=== PATIENT | female | born 1970 | race Caucasian/White ===

== ENCOUNTER 2022-01-31 08:14 | Inpatient (IN) | payer OTHER ==
[2022-01-25 13:44] LABS: BASOPHILS # (AUTO) 0.1 X10'3 (0-0.2); BASOPHILS % (AUTO) 0.9 % (0-1); EOSINOPHILS # (AUTO) 0.2 X10'3 (0-0.9); EOSINOPHILS % (AUTO) 1.9 % (0-6); LYMPHOCYTES # (AUTO) 2.6 X10'3 (1.1-4.8); MEAN CORPUSCULAR HEMOGLOBIN 31.9 PG (27.0-31.0); MEAN CORPUSCULAR HGB CONC 33.6 g/dL (33.0-36.5); MEAN CORPUSCULAR VOLUME 94.9 FL (78-98); MEAN PLATELET VOLUME 7.5 FL (7.4-10.4); MONOCYTES # (AUTO) 0.7 X10'3 (0-0.9); MONOCYTES % (AUTO) 8.5 % (2-12); NEUTROPHILS # (AUTO) 5.1 X10'3 (1.8-7.7); NEUTROPHILS % (AUTO) 58.7 % (42-75); PRE OP HEMATOCRIT 42.3 % (35.0-45.0); PRE OP HEMOGLOBIN 14.2 g/dL (12.0-16.0); PRE OP PLATELET COUNT 292 X10'3 (140-440); RED BLOOD COUNT 4.46 X10'6 (4.20-5.60); RED CELL DISTRIBUTION WIDTH 13.1 % (11.5-14.5)
[2022-01-25 14:07] LABS: ALBUMIN 3.4 G/DL (3.4-5.0); ALKALINE PHOSPHATASE 104 IU/L (46-116); BLOOD UREA NITROGEN 16 MG/DL (7-18); BUN/CREATININE RATIO 19.5 (6.6-38.0); CALCIUM 8.7 MG/DL (8.5-10.1); CHLORIDE 103 MMOL/L (99-107); CREATININE 0.82 MG/DL (0.40-0.90); PRE OP ALT 36 U/L (30-65); PRE OP ANION GAP 6 (8-16); PRE OP AST 14 U/L (10-37); PRE OP BILIRUB, TOTAL 0.7 MG/DL (0.0-1.0); PRE OP GLUCOSE 97 MG/DL (70-104); PRE OP POTASSIUM 3.9 MMOL/L (3.4-5.1); PRE OP SODIUM 138 MMOL/L (135-145); TOTAL CARBON DIOXIDE 28.8 MMOL/L (24-32); TOTAL PROTEIN 6.9 G/DL (6.4-8.2); eGFR 73 ML/MIN
[~2022-01-31] VITALS: Ht 162.6 cm; Wt 113.2 kg
[2022-01-31] VITALS (23 sets, daily range): BP systolic 88–143; BP diastolic 48–82
[~2022-01-31 08:14] MED LIST: ACET-1025 PO; ASCO500T28 PO; ERGO400C PO; IBUP-1985 PO; ROPIVAcaine 0.5% (5mg/ml) 30ml vial ONE; VITA-268 PO; ceFAZolin inj. 2,000 MG in dextrose 5%-water 100 ML IV ONE; famotidine 20mg tablet PO ONE; ringers solution, lacted 1,000 ML IV SCH; tranexamic acid 650mg tablet PO ONE; vancomycin 1,500 MG in NS 300ml IV soln IV ONE
--- NOTE | 2022-01-31 08:50 | NUR ---
CSM: PULSES PRESENT. MARKED PEDAL PULSES. PATIENT WATCHED THE VIDEO AND USED HER MUPIROCIN CREAM DIRECTED. EDUCATED PATIENT ON HOW TO USE THE ON Q PUMP. EDUCATED PATIENT ON THE USE OF THE INCENTIVE SPIROMETER AND ITS IMPORTANCE.
[2022-01-31] MEDS ORDERED: ketorolac trometh. 30mg/ml inj. ONE (09:29)
[2022-01-31] MEDS ORDERED: ROPIVAcaine 0.5% (5mg/ml) 30ml vial ONE (09:29)
[2022-01-31] MEDS ORDERED: LIDOcaine 1% (10mg/ml)w/preservative inj. 20ml MDV ONE (10:30)
[2022-01-31] MEDS ORDERED: acetaminophen 1000 MG/100ml vial IV ONE (10:30)
[2022-01-31] MEDS ORDERED: sevoflurane 250ml liquid IH ONE (10:30)
[2022-01-31] MEDS ORDERED: fentaNYL/PF 50MCG/1 ML 2ML syringe ONE (10:36)
[2022-01-31] MEDS ORDERED: midazolam 1 mg/ML 2ml injection ONE (10:36)
[2022-01-31] MEDS ORDERED: succinylcholine 20mg/ml inj IV ONE (10:39)
[2022-01-31] MEDS ORDERED: propofol inj 20 ML IV ONE (10:39)
[2022-01-31] MEDS ORDERED: ondansetron/PF 4mg/2ml inj ONE (10:39)
[2022-01-31] MEDS ORDERED: dexamethasone sod phosphate 4mg/ml inj. ONE (10:39)
[2022-01-31] MEDS ORDERED: morphine 4 MG/ML inj SYRINge IV PRN (11:40)
[2022-01-31] MEDS ORDERED: ringers solution, lacted 1,000 ML IV SCH (11:40)
[2022-01-31] MEDS ORDERED: morphine 2 MG/ML inj. syringe IV PRN (11:40)
[2022-01-31] MEDS ORDERED: fentaNYL/PF 50MCG/1 ML 2ML syringe IV PRN ×2 (11:40)
[2022-01-31] MEDS ORDERED: ondansetron/PF 4mg/2ml inj IV PRN ×2 (11:40→13:15)
[2022-01-31] MEDS ORDERED: labetalol 20mg/4ml (5mg/ml) syringe IV PRN (11:40)
[2022-01-31] MEDS ORDERED: ROPIVAcaine 0.2% (10 MG/5 ML) BOLUS INJECTION INTERSCALE PRN (11:40)
[2022-01-31] MEDS ORDERED: hydrALAZINE 20mg/ml inj. IV PRN (11:40)
[2022-01-31] MEDS ORDERED: ePHEDrine 50MG/ML INJ. ONE (12:21)
--- NOTE | 2022-01-31 12:52 | NUR ---
Received from OR via VIA BED IN STABLE CONDITION WITH ORAL AIRWAY IN PLACE, accompanied by Anesthesiologist and FIELD STAFF MANAGER report given by FIELD STAFF MANAGER AND Anesthesiolgist. Addendum: 01/31/22 at 1320 by Nabila Samuel RN Amended: Links added.
--- NOTE | 2022-01-31 13:13 | NUR ---
Received from OR via BED IN STABLE CONDITION WITH ORAL AIRWAY IN PLACE , accompanied by Anesthesiologist and DIAMOND CLEAVER report given by DIAMOND CLEAVER AND Anesthesiolgist.
[2022-01-31] MEDS ORDERED: magnesium hydroxide 30ml (MOM) UD suspension PO PRN (13:15)
[2022-01-31] MEDS ORDERED: bisacodyl 10mg suppository rectal RC PRN (13:15)
[2022-01-31] MEDS ORDERED: naloxone 0.4 mg/ml inj IV PRN (13:15)
[2022-01-31] MEDS ORDERED: non-formulary drug (Acetaminophen (Tylenol Extra Strength) 1 TAB) PO PRN (13:15)
[2022-01-31] MEDS ORDERED: HYDROmorphone inj. 0.5 MG/0.5 ML DISP.SYRIN IV PRN (13:15)
[2022-01-31] MEDS ORDERED: acetaminophen 325mg tablet PO PRN (13:15)
[2022-01-31] MEDS ORDERED: diphenhydrAMINE 25mg capsule PO PRN ×2 (13:15)
[2022-01-31] MEDS ORDERED: HYDROmorphone 1 mg/ml syringe IV PRN (13:15)
[2022-01-31] MEDS: acetaminophen 325mg tablet PO SCH ×2 (14:00→20:36)
[2022-01-31] MEDS: ROPIVAcaine 0.2%/PF PUMP/bolus 545 ML INTERSCALE SCH (14:05)
--- NOTE | 2022-01-31 14:52 | NUR ---
PATIENT DISCHARGED FROM PACU IN STABLE CONDITION AFTER REPORT GIVEN TO THE RN TAKING OVER PATIENTS CARE. PATIENT TRANSFERRED TO ROOM 4023B VIA BED WITH RN X2. Addendum: 01/31/22 at 1505 by Nabila Samuel RN Amended: Links added.
[2022-01-31] MEDS: ceFAZolin/D5W- 1GM premix 50 ML IV SCH (16:24)
[2022-01-31] MEDS: potassium cl 20mEq in 1/2 NS 1,000 ML IV SCH ×2 (16:24→21:15)
--- NOTE | 2022-01-31 18:17 | NUR ---
Problems reprioritized. Patient report given, questions answered & plan of care reviewed with HANY ARMIJO.
--- NOTE | 2022-01-31 18:25 | NUR ---
Patient in room [facility]TH[facility] 4023. I have received report from ZOFIA Chin and had the opportunity to ask questions and assume patient care.
[2022-01-31] MEDS ORDERED: vancomycin/NS 1 GM ADD-VANTAGE 250 ML IV SCH (20:00)
[2022-01-31] MEDS: sennosides 8.6mg tablet PO SCH (20:35)
[2022-01-31] MEDS: oxyCODONE IR 5mg (immed. release) tablet PO PRN (20:37)
[2022-02-01] MEDS: ceFAZolin/D5W- 1GM premix 50 ML IV SCH (00:13)
[2022-02-01 02:00] VITALS: BP 127/62
[2022-02-01] MEDS: acetaminophen 325mg tablet PO SCH ×4 (02:04→21:10)
[2022-02-01] MEDS: potassium cl 20mEq in 1/2 NS 1,000 ML IV SCH ×2 (02:42→21:12)
[2022-02-01 06:07] LABS: BASOPHILS # (AUTO) 0.1 X10'3 (0-0.2); BASOPHILS % (AUTO) 0.7 % (0-1); EOSINOPHILS % (AUTO) 0 % (0-6); HEMATOCRIT 37.9 % (35.0-45.0); HEMOGLOBIN 12.6 g/dl (12.0-16.0); LYMPHOCYTES # (AUTO) 1.3 X10'3 (1.1-4.8); LYMPHOCYTES % (AUTO) 8.6 % (21-51); MEAN CORPUSCULAR HEMOGLOBIN 31.6 PG (27.0-31.0); MEAN CORPUSCULAR HGB CONC 33.1 g/dL (33.0-36.5); MEAN CORPUSCULAR VOLUME 95.4 FL (78-98); MEAN PLATELET VOLUME 7.9 FL (7.4-10.4); MONOCYTES # (AUTO) 1.1 X10'3 (0-0.9); MONOCYTES % (AUTO) 7.2 % (2-12); NEUTROPHILS % (AUTO) 83.5 % (42-75); PLATELET COUNT 291 X10'3 (140-440); RED BLOOD COUNT 3.97 X10'6 (4.20-5.60); RED CELL DISTRIBUTION WIDTH 12.9 % (11.5-14.5); WHITE BLOOD COUNT 15.6 X10'3 (4.5-11.0)
[2022-02-01 06:27] LABS: ANION GAP 8 (8-16); CHLORIDE 107 MMOL/L (99-107); POTASSIUM 4.8 MMOL/L (3.5-5.1); SODIUM 140 MMOL/L (135-145); TOTAL CARBON DIOXIDE 24.8 MMOL/L (24-32)
--- NOTE | 2022-02-01 06:47 | NUR ---
Problems reprioritized. Patient report given, questions answered & plan of care reviewed with ZOFIA Cole.
[2022-02-01 07:38] VITALS: BP 96/49
[2022-02-01 10:00] VITALS: BP 122/62
[2022-02-01] MEDS: vitamin B comp w/Vit. C tab 1 TAB TABLET PO SCH (11:26)
[2022-02-01] MEDS: aspirin 325mg tablet PO SCH (11:26)
[2022-02-01] MEDS: ibuprofen 200mg tablet PO SCH (11:26)
--- NOTE | 2022-02-01 11:38 | NUR ---
Joint surgery consult: Pt s/p R shoulder surgery this admit per EMR. Pt seen by KENZIE for written/verbal high protein ed w/ RD contact information provided. KENZIE encouraged pt to contact dietitian's office if further nutrition questions/concerns. Addendum: 02/01/22 at [address] Amended: Links added.
[2022-02-01] MEDS: oxyCODONE IR 5mg (immed. release) tablet PO PRN ×2 (13:58→21:09)
[2022-02-01 18:00] VITALS: BP 115/57
[2022-02-01] MEDS: sennosides 8.6mg tablet PO SCH (21:09)
[2022-02-01] MEDS: celeCOXIB 100mg capsule PO SCH (21:10)
[2022-02-01 22:00] VITALS: BP 145/70
[2022-02-02] MEDS: potassium cl 20mEq in 1/2 NS 1,000 ML IV SCH (00:58)
[2022-02-02] MEDS: acetaminophen 325mg tablet PO SCH ×2 (02:17→09:05)
[2022-02-02] MEDS: oxyCODONE IR 5mg (immed. release) tablet PO PRN ×3 (02:18→09:57)
[2022-02-02 06:00] VITALS: BP 127/83
[2022-02-02 06:26] LABS: BASOPHILS % (AUTO) 0.4 % (0-1); EOSINOPHILS # (AUTO) 0.1 X10'3 (0-0.9); EOSINOPHILS % (AUTO) 1.4 % (0-6); HEMATOCRIT 36.6 % (35.0-45.0); HEMOGLOBIN 12.1 g/dl (12.0-16.0); LYMPHOCYTES # (AUTO) 2.9 X10'3 (1.1-4.8); LYMPHOCYTES % (AUTO) 29.2 % (21-51); MEAN CORPUSCULAR HEMOGLOBIN 31.4 PG (27.0-31.0); MEAN CORPUSCULAR HGB CONC 33.1 g/dL (33.0-36.5); MEAN CORPUSCULAR VOLUME 94.7 FL (78-98); MEAN PLATELET VOLUME 8.1 FL (7.4-10.4); MONOCYTES # (AUTO) 0.9 X10'3 (0-0.9); MONOCYTES % (AUTO) 8.8 % (2-12); NEUTROPHILS # (AUTO) 5.9 X10'3 (1.8-7.7); NEUTROPHILS % (AUTO) 60.2 % (42-75); PLATELET COUNT 255 X10'3 (140-440); RED BLOOD COUNT 3.86 X10'6 (4.20-5.60); WHITE BLOOD COUNT 9.8 X10'3 (4.5-11.0)
--- NOTE | 2022-02-02 06:35 | NUR ---
Problems reprioritized. Patient report given, questions answered & plan of care reviewed with dylan Mcgowan.
[2022-02-02] MEDS: ibuprofen 200mg tablet PO SCH (09:06)
[2022-02-02] MEDS: vitamin B comp w/Vit. C tab 1 TAB TABLET PO SCH (09:06)
[2022-02-02] MEDS: aspirin 325mg tablet PO SCH (09:06)
[2022-02-02] MEDS: celeCOXIB 100mg capsule PO SCH (09:06)
[2022-02-02] MEDS: ROPIVAcaine 0.2%/PF PUMP/bolus 545 ML INTERSCALE SCH (09:07)
[2022-02-02 10:00] VITALS: BP 121/67
[2022-02-02] MEDS ORDERED: acetaminophen 325mg tablet PO PRN (13:15)
== END 2022-02-02 14:05 | disposition home or self-care (01) | DRG 483 ==
LOC: PAS IN 08:14 → ORTHO 4S 14:53
PROVIDERS: ADMIT Orthopaedic Surgery; ATTEND Orthopaedic Surgery
PROC: 0LS30ZZ Reposition Right Upper Arm Tendon, Open Approach (ICD-10-PCS; 2022-01-31)
PROC: 3E0T3BZ Introduction of Anesthetic Agent into Peripheral Nerves and Plexi, Percutaneous Approach (ICD-10-PCS; 2022-01-31)
PROC: 3E0T33Z Introduction of Anti-inflammatory into Peripheral Nerves and Plexi, Percutaneous Approach (ICD-10-PCS; 2022-01-31)
PROC: 5A09357 Assistance with Respiratory Ventilation, Less than 24 Consecutive Hours, Continuous Positive Airway Pressure (ICD-10-PCS; 2022-01-31)
PROC: 5A09357 Assistance with Respiratory Ventilation, Less than 24 Consecutive Hours, Continuous Positive Airway Pressure (ICD-10-PCS; 2022-01-31)
PROC: 0RRJ0JZ Replacement of Right Shoulder Joint with Synthetic Substitute, Open Approach (ICD-10-PCS; principal; 2022-01-31 10:30)
DX: M19.011 Primary osteoarthritis, right shoulder (principal); Z68.41 Body mass index [BMI] 40.0-44.9, adult; F17.210 Nicotine dependence, cigarettes, uncomplicated; K21.9 Gastro-esophageal reflux disease without esophagitis; E66.01 Morbid (severe) obesity due to excess calories; G47.30 Sleep apnea, unspecified; G89.29 Other chronic pain; M65.811 Other synovitis and tenosynovitis, right shoulder; M75.121 Complete rotator cuff tear or rupture of right shoulder, not specified as traumatic; Z79.899 Other long term (current) drug therapy
CPT/HCPCS: Z7506; Z7508; 36415; 80051; 80053; 82948; 85025; 87081; 97110; 97116; 97161; 97530; A4215; A4565; A4618; A7000; C1713; C1776; G0378; J0131; J0330; J0690; J1100; J1885; J2250; J2270; J2405; J2704; J2795; J3010; J3370; J3480; J3490; J7040; J7060; J7120; U0003; U0005

== ENCOUNTER 2023-07-11 23:30 | Emergency (ER) | payer MEDICAID, OTHER ==
[~2023-07-11] VITALS: Ht 162.6 cm; Wt 115.9 kg
[~2023-07-11 23:30] MED LIST changes: -ROPIVAcaine 0.5% (5mg/ml) 30ml vial ONE; -ceFAZolin inj. 2,000 MG in dextrose 5%-water 100 ML IV ONE; -famotidine 20mg tablet PO ONE; -ringers solution, lacted 1,000 ML IV SCH; -tranexamic acid 650mg tablet PO ONE; -vancomycin 1,500 MG in NS 300ml IV soln IV ONE
[2023-07-11 23:35] VITALS: BP 166/98; PULSE 98; TEMP 98.3; O2SAT 100
[2023-07-12] MEDS ORDERED: HYDROcodone/acetaminophen 5mg/325mg tablet PO ONE (04:10)
[2023-07-12 04:39] VITALS: RESP 18
--- NOTE | 2023-07-12 04:42 | NUR ---
I have reviewed and agree with all interventions, assessments performed and documented by CHERYL Vines.
[2023-07-12] MEDS ORDERED: HYDR-3965 PO (04:54)
== END 2023-07-12 05:06 | disposition home or self-care (01) ==
LOC: ER 23:30
DX: S20.211A Contusion of right front wall of thorax, initial encounter (principal); X58.XXXA Exposure to other specified factors, initial encounter; Y93.89 Activity, other specified; Y92.89 Other specified places as the place of occurrence of the external cause; Y99.8 Other external cause status
CPT/HCPCS: 71045; 99283

== ENCOUNTER 2024-01-18 15:57 | Outpatient (CLI) | payer MEDICAID | END 2024-01-18 23:59 | disposition home or self-care (01) | LOC: RAD 15:57 | PROVIDERS: ATTEND Student in an Organized Health Care Education/Training Program | DX: M25.551 Pain in right hip (principal) | CPT/HCPCS: 73521 ==

== ENCOUNTER 2024-07-11 01:07 | Emergency (ER) | payer MEDICAID ==
[~2024-07-11] VITALS: Ht 162.6 cm; Wt 107.0 kg
[~2024-07-11 01:07] MED LIST changes: +ACET-812 PO; +NIRM1TAB9 PO; +ONDA-245 PO
[2024-07-11 01:25] VITALS: BP 147/73; PULSE 101; O2SAT 99
[2024-07-11 02:20] LABS: BASOPHILS # (AUTO) 0.1 X10'3 (0-0.2); BASOPHILS % (AUTO) 0.7 % (0-1); EOSINOPHILS # (AUTO) 0.3 X10'3 (0-0.9); EOSINOPHILS % (AUTO) 2.3 % (0-6); HEMATOCRIT 40.2 % (35.0-45.0); HEMOGLOBIN 13.5 g/dl (12.0-16.0); LYMPHOCYTES # (AUTO) 2.9 X10'3 (1.1-4.8); LYMPHOCYTES % (AUTO) 24.6 % (21-51); MEAN CORPUSCULAR HGB CONC 33.5 g/dL (33.0-36.5); MEAN CORPUSCULAR VOLUME 95.4 FL (78-98); MEAN PLATELET VOLUME 7.6 FL (7.4-10.4); MONOCYTES # (AUTO) 0.7 X10'3 (0-0.9); NEUTROPHILS # (AUTO) 7.8 X10'3 (1.8-7.7); NEUTROPHILS % (AUTO) 66.4 % (42-75); PLATELET COUNT 263 X10'3 (140-440); RED BLOOD COUNT 4.22 X10'6 (4.20-5.60); WHITE BLOOD COUNT 11.7 X10'3 (4.5-11.0)
[2024-07-11 02:32] LABS: ALANINE AMINOTRANSFERASE 30 U/L (12-78); ALBUMIN 3.2 G/DL (3.4-5.0); ALBUMIN/GLOBULIN RATIO 0.8 (1.1-1.5); ALKALINE PHOSPHATASE 136 IU/L (46-116); ANION GAP 9 (8-16); ASPARTATE AMINO TRANSFERASE 19 U/L (10-37); BILIRUBIN,TOTAL 0.6 MG/DL (0.1-1.0); BLOOD UREA NITROGEN 21 MG/DL (7-18); BUN/CREATININE RATIO 20.2 (10.0-20.0); CALCIUM 8.9 MG/DL (8.5-10.1); CHLORIDE 99 MMOL/L (99-107); CREATININE 1.04 MG/DL (0.40-0.90); GLUCOSE 165 MG/DL (70-104); POTASSIUM 3.7 MMOL/L (3.5-5.1); SODIUM 134 MMOL/L (135-145); TOTAL CARBON DIOXIDE 26.2 MMOL/L (24-32); TOTAL PROTEIN 7.1 G/DL (6.4-8.2); eCRCL 52 ML/MIN; eGFR 55 ML/MIN
[2024-07-11 02:41] LABS: PRO BRAIN NATRIURETIC PEPTIDE 43 PG/ML (0-125)
[2024-07-11] MEDS: dexamethasone 4mg tablet PO ONE (03:17)
[2024-07-11] MEDS: magnesium oxide 400mg tablet PO ONE (03:17)
[2024-07-11 03:20] VITALS: RESP 16
[2024-07-11] MEDS ORDERED: NAPR-56 PO (03:52)
[2024-07-11] MEDS: acetaminophen 325mg tablet PO ONE (04:04)
[2024-07-11] MEDS: naproxen 500mg tablet PO ONE (04:04)
[2024-07-11 04:05] VITALS: TEMP 98
== END 2024-07-11 04:08 | disposition home or self-care (01) ==
LOC: ER 01:08
DX: R07.89 Other chest pain (principal); M25.551 Pain in right hip; E78.00 Pure hypercholesterolemia, unspecified; F17.200 Nicotine dependence, unspecified, uncomplicated; M19.90 Unspecified osteoarthritis, unspecified site; Z88.5 Allergy status to narcotic agent; Z79.1 Long term (current) use of non-steroidal anti-inflammatories (NSAID); Z79.899 Other long term (current) drug therapy; Z59.00 Homelessness unspecified; X50.0XXA Overexertion from strenuous movement or load, initial encounter; Y93.89 Activity, other specified; Y92.89 Other specified places as the place of occurrence of the external cause; Y99.8 Other external cause status
CPT/HCPCS: 36415; 71045; 73502; 80053; 83735; 83880; 84484; 85025; 93005; 99285

== ENCOUNTER 2025-07-24 13:28 | Outpatient (CLI) | payer MEDICAID ==
[~2025-07-24 13:28] MED LIST changes: -IBUP-1985 PO; +IBUP600T52 PO; +NIRM1TAB13 PO; -NIRM1TAB9 PO
--- NOTE | 2025-07-24 14:09 | RADIOLOGY REPORT ---
Indication: FLANK PAIN, RIGHT SIDE Technique: CT axial images of the abdomen and pelvis are obtained without contrast. Coronal and sagittal reformats were obtained. Radiation Dose Information: CTDI volume is 36 mGy. Dose-length product is 1796 mGy*cm Comparison: None FINDINGS: There is limited interpretation of the abdomen and pelvis without administration of intravenous contrast. Lung bases demonstrate no pleural effusion. Adrenal glands, spleen, pancreas unremarkable in shape. No CT evidence for cholelithiasis. Liver unremarkable in shape. Moderate size hiatal hernia. Small bowel loops normal in caliber. Colonic diverticular disease. Small subcentimeter lymph nodes surrounding the sigmoid colon. Wall thickening of the sigmoid colon. Moderate volume stool in the colon. Normal appendix. Abdominal aortic atherosclerotic disease. Bladder partially distended. No free pelvic fluid. No inguinal lymphadenopathy. [id number] bilateral sacroiliac degenerative joint disease. Posterior intrapedicular fixation of the L5 and S1 vertebral bodies. 4 mm anterolisthesis L5 on S1. IMPRESSION: Limited evaluation without contrast. Colonic diverticular disease and wall thickening of the sigmoid colon with small surrounding lymph nodes which could represent sequela of diverticulitis. Recommend colonoscopy to exclude any type of sigmoid colon mass/ neoplasm. No hydronephrosis/ nephrolithiasis. Atherosclerotic disease. Hiatal hernia. Other findings as described.
== END 2025-07-24 23:59 | disposition home or self-care (01) ==
LOC: RAD 13:28
PROVIDERS: ATTEND Family Medicine
DX: K57.30 Diverticulosis of large intestine without perforation or abscess without bleeding (principal); R10.A1 Flank pain, right side; K44.9 Diaphragmatic hernia without obstruction or gangrene; R59.0 Localized enlarged lymph nodes; I70.0 Atherosclerosis of aorta; N32.89 Other specified disorders of bladder; M46.1 Sacroiliitis, not elsewhere classified
CPT/HCPCS: 74176

== ENCOUNTER 2025-08-27 16:33 | Emergency (ER) | payer MEDICAID ==
[~2025-08-27] VITALS: Ht 165.1 cm; Wt 112.5 kg
[2025-08-27] MEDS ORDERED: AMOX-117 PO (17:57)
--- NOTE | 2025-08-27 17:57 | Physician Documentation ---
History of Present Illness ~ Chief Complaint: Cold, cough & congestion Stated Complaint: FLU SYMPTOMS Time Seen by MD: 17:36 OK to notify your PCP?: Yes Primary Medical Doctor: alfonso green Source: patient Mode of Arrival: POV Exam Limitations: no limitations HPI Reports having runny nose, and intermittent productive cough with green sputum over the past week. She reports that she has felt feverish but has not taken he r temperature. She reports that she has been taking DayQuil at home with little relief. Denies asthma, COPD, chest pain or severe shortness of breath. Medication Reconciliation Allergies: Coded Allergies: hydromorphone (Verified Adverse Reaction, Severe, CRAZY, PSYCHOSIS, 07/11/24) Scheduled Acetaminophen (Tylenol Extra Strength), 2 TABLET PO Q6H Amox Tr/Potassium Clavulanate (Augmentin 875-125 Tablet), 1 TAB PO Q12H Ascorbic Acid (Ascorbic Acid), Unknown Dose PO DAILY, (Reported) Ergocalciferol (Vitamin D), Unknown Dose PO DAILY, (Reported) Ibuprofen (Ibuprofen), 1 TAB PO DAILY, (Reported) Ibuprofen (Ibuprofen), 1 TAB PO Q6H Nirmatrelvir/Ritonavir (Paxlovid 300-100 mg Dose Pack), 1 TAB PO BID Ondansetron 8mg ODT (Ondansetron Odt), 1 TAB PO Q6H Vitamin B Complex (B Complex), 1 EACH PO DAILY, (Reported) Scheduled PRN Acetaminophen (Tylenol Extra Strength), 1 TAB PO TID PRN PRN for pain or fever, (Reported) Past Medical History Past Medical History: High Cholesterol, Osteoarthritis Past Surgical History: noncontributory, orthopedic surgeries Other Past Family History: Mother of ND at 57. Father had ND Alcohol Use: Rarely Drug Use: none Lives In: Homeless Review of Systems All Other Systems at this time: Reviewed and Negative Physical Exam Vital Signs: RN Vital Signs have been reviewed: Yes, Temperature: 97.9, Source: Temporal, Heart Rate: 72, Respiratory Rate: 17, BP: 132/63, Pulse Oximetry: 94, Weight: 112.500 Pulse Oximetry Reflects: adequate oxygenation Physical Exam General: Alert, no apparent distress. HEENT: PERRL, EOMI, no injection, moist mucous membranes. Posterior pharynx erythema, no exudates. Bilateral TM clear. Sinuses nontender bilaterally. Neck: Full range of motion. No cervical lymphadenopathy. Respiratory: Diminished lung sounds, trace bilateral crackles heard in the bases. No respiratory distress. Chest: No accessory muscle use. Cardiovascular: Regular rate and rhythm, no murmurs. Gastrointestinal: Soft, nontender, nondistended. Bowels sounds present. Extremities: Normal range of motion, no deformity. Neurologic: Oriented x4. Psychiatric: Normal mood and affect. Skin: Normal color, warm and dry. No edema, no ecchymosis. Progress Results/Orders Results/Orders Completed Orders - LAQUITA ACHARYA THIN FILM TECHNICIAN Amox Tr/Potassium Clavulanate (Augmentin (08/27/25 17:55) Medications Received in ER Medications (Trade) Dose Ordered Sig/Taqueria Route PRN Reason Start Time Stop Time Status Last Admin Dose Admin (Augmentin 875-125mg tablet) 1 tab ONCE ONCE PO 08/27/25 17:55 08/27/25 17:57 DC 08/27/25 18:07 1 TAB Vital Signs 08/27/25 08/27/25 16:45 18:11 Temp 97.9 97.9 Pulse 72 94 Resp 17 18 B/P (MAP) 132/63 133/87 Pulse Ox 94 95 Medical Decision Making Additional information obtaine: old records Findings Vitals are stable on arrival. She reports having viral respiratory symptoms which started about a week ago and have progressed. She reports having a productive cough and coughing up thick green sputum. We discussed that she has felt feverish at home but has also taken some DayQuil today prior to arrival. This reason I will treat her for community-acquired pneumonia. I have placed her on Augmentin with the 1st dose given here the rest sent to the pharmacy. There are no wheezes heard and she does not have a history of COPD or asthma. She was given return instructions as well as follow up instructions. Differential Dx:Considerations: Include: Influenza, Peritonsillar abscess, Pharyngitis-Streptoccal, Pneumonia, Pnuemonitis Departure Disposition: HOME / SELF CARE / HOMELESS Impression: Primary Impression: Acute respiratory infection Discharge Instructions: Upper Respiratory Infection, Adult, Cough, Adult Additional Instructions: Follow up with her primary care provider in the next week, return back here for any new or worsening symptoms. However, you can take acetaminophen or ibuprofen to help with fevers and pain. Stay well hydrated and rested. Return to the emergency department if your fevers and chills continue to worsen after 5 days, if you develop worsening cough with thick sputum, are unable to stay hydrated, or have any new or concerning concerning symptoms. Contact your primary care provider in the next 2-3 days for re-evaluation and to make sure your symptoms are improving. Referrals: NO PRIMARY CARE PROVIDER (PCP) Prescriptions Amox Tr/Potassium Clavulanate (Augmentin 875-125 Tablet) 1 Each Tablet 1 TAB PO Q12H for 7 Days, #14 TAB Prov: LAQUITA ACHARYA 08/27/25 Education Educated: Patient Educated regarding: diagnosis, treatment, prognosis, need for follow up Additional Comment Medical Screen Exam This patient recieved a medical screening examination. After reviewing the individual's medical complaints with presenting symptoms and performing an appropriate physical examination, it was determined that no immediate life- threatening emergency medical condition is present. This individual is also not a women having contractions. Signature Scribe Signature: . Attestation: Scribed for Laquita Acharya by Laquita Acharya - TUCKER . 08/27/25 19:47 Parts of this note were created using [employer] voice recognition software program. While efforts were made to correct any mistakes made by this voice recognition software program, nonsensical phrases may remain in this note. In addition, there may be errors and syntax, grammar, content and spelling. LAQUITA AHCARYA Aug 27, 2025 17:57
[2025-08-27] MEDS: amox tr/potassium clavulanate 875/125mg TAB PO ONE (18:07)
[2025-08-27 18:11] VITALS: BP 133/87; PULSE 94; RESP 18; TEMP 97.9; O2SAT 95
== END 2025-08-27 18:12 | disposition home or self-care (01) ==
LOC: ER 16:34
DX: J22 Unspecified acute lower respiratory infection (principal); E78.00 Pure hypercholesterolemia, unspecified; M19.90 Unspecified osteoarthritis, unspecified site; Z88.5 Allergy status to narcotic agent; Z79.899 Other long term (current) drug therapy; Z98.890 Other specified postprocedural states; Z59.00 Homelessness unspecified
CPT/HCPCS: 99283